=== PATIENT | male | born 1940 | race Two or more races ===

== ENCOUNTER 2017-07-26 20:40 | Emergency (ER) | payer OTHER ==
[~2017-07-26] VITALS: Ht 167.6 cm; Wt 63.5 kg
--- NOTE | 2017-07-26 20:49 | NUR ---
CAMERON MUIR AT BEDSIDE TO YAZMIN KHALIL.
--- NOTE | 2017-07-26 20:59 | NUR ---
BLOOD DRAWN BY PERINATAL INSTRUCTOR.
[2017-07-26 21:04] LABS: BASOPHILS % (AUTO) 0.7 % (0.0-2.0); EOSINOPHILS # (AUTO) 0.1 /CMM (0.0-0.7); EOSINOPHILS % (AUTO) 2.3 % (0.0-6.0); HEMATOCRIT 27 % (39-51); HEMOGLOBIN 8.9 g/dL (13.5-17.5); LYMPHOCYTES # (AUTO) 1.2 /CMM (0.8-4.8); LYMPHOCYTES % (AUTO) 21.8 % (20.0-44.0); MEAN CORPUSCULAR HEMOGLOBIN 31 PG (26.0-33.0); MEAN CORPUSCULAR HGB CONC 33 g/dl (31.0-36.0); MEAN CORPUSCULAR VOLUME 92 fL (80-96); MONOCYTES # (AUTO) 0.4 /CMM (0.1-1.30); MONOCYTES % (AUTO) 7.3 % (2.0-12.0); NEUTROPHILS % (AUTO) 67.9 % (43.0-81.0); PLATELET COUNT (AUTO) 117 /CMM (150-450); RDW COEFFICIENT OF VARIATION 17.3 (11.5-15.0); RED BLOOD CELL COUNT(AUTO) 2.93 MIL/uL (4.5-6.0); WHITE BLOOD COUNT (AUTO) 5.7 K/uL (4.3-11.0)
[2017-07-26 21:34] LABS: CALCIUM, SERUM 8.5 mg/dL (8.5-10.1); CARBON DIOXIDE 25 mmol/L (21-32); CHLORIDE 110 mmol/L (98-107); CREATININE 3.9 mg/dL (0.6-1.3); GLUCOSE 111 mg/dL (74-106); SODIUM SERUM 143 mmol/L (136-145); UREA NITROGEN, BLOOD 58 mg/dL (7-18)
[2017-07-26 21:39] LABS: POTASSIUM 6.2 mmol/L (3.5-5.1)
[2017-07-26 21:41] LABS: BILIRUBIN,DIRECT 0.1 mg/dL (0.0-0.2); BILIRUBIN,TOTAL 0.3 mg/dL (0.2-1.0)
[2017-07-26 21:42] LABS: ALANINE AMINOTRANSFERASE 44 U/L (12-78); ALBUMIN 2.5 g/dL (3.4-5.0); ALKALINE PHOSPHATASE 314 U/L (46-116); ASPARTATE AMINOTRANSFERASE 42 U/L (15-37); LIPASE 568 U/L (73-393); TOTAL PROTEIN, SERUM 6.6 g/dL (6.4-8.2)
--- NOTE | 2017-07-26 21:49 | NUR ---
RT CALLED FOR [facility] [place].
--- NOTE | 2017-07-26 21:51 | NUR ---
CALLED [facility], AWAITING CALL BACK FROM [place]
[2017-07-26] MEDS ORDERED: SODIUM POLYSTYRENE SULFONATE 15 G/60 ML BOTTLE ONE (21:57)
[2017-07-26] MEDS ORDERED: CALCIUM CHLORIDE 1,000 MG/10 ML DISP.SYRIN ONE (21:58)
[2017-07-26] MEDS ORDERED: SODIUM BICARBONATE SYR 50 MEQ/50 ML DISP.SYRIN ONE (21:58)
[2017-07-26] MEDS ORDERED: CALCIUM CHLORIDE 1,000 MG/10 ML DISP.SYRIN IV ONE (22:00)
[2017-07-26] MEDS ORDERED: SODIUM BICARBONATE SYR 50 MEQ/50 ML DISP.SYRIN IV ONE (22:00)
[2017-07-26] MEDS ORDERED: SODIUM POLYSTYRENE SULFONATE 15 G/60 ML BOTTLE PO ONE (22:00)
[2017-07-26] MEDS ORDERED: ALBUTEROL FS 2.5 MG/3 ML VIAL.NEB NEB ONE (22:00)
[2017-07-26] MEDS ORDERED: ALBUTEROL FS 2.5 MG/3 ML VIAL.NEB ONE (22:04)
[2017-07-26] MEDS ORDERED: LIDOCAINE 2% JEL UROJET 10 ML MM ONE (22:32)
--- NOTE | 2017-07-26 23:08 | NUR ---
RECEIVED CALL BACK FROM [facility] WITH TRANSFER INFO. PATIENT IS GOING TO [facility]. RECEIVING DR. WILL BE DR. MAC. [facility] ETA 0115. PHONE NUMBER FOR REPORT IS [phone]
--- NOTE | 2017-07-26 23:49 | NUR ---
pt resting quietly, no acute distress noted, resp even and unlabored. call light wihtin reach. pt family meber at bedside.
[2017-07-27] MEDS ORDERED: DEXTROSE 50%-WATER 50 ML DISP.SYRIN IVP ONE
[2017-07-27] MEDS ORDERED: DEXTROSE 50%-WATER 50 ML DISP.SYRIN ONE (00:08)
--- NOTE | 2017-07-27 00:15 | NUR ---
DAUGHTER OF PATIENT REQUESTED A CALL WHENEVER THE PATIENT GETS TRANSFERED TO [place]. HER NAME IS KEILA, PHONE NUMBER: [phone]
[2017-07-27 01:24] VITALS: BP 130/81
--- NOTE | 2017-07-27 01:27 | NUR ---
[facility] REPORT GIVEN SENIOR CONTROLS TECHNICIAN
--- NOTE | 2017-07-27 01:32 | NUR ---
REPORT GIVEN TO [facility] CORTEZ.
--- NOTE | 2017-07-27 01:35 | NUR ---
[facility] ROOM 103, NURSE IS BROOKS
== END 2017-07-27 01:34 | disposition short-term general hospital (02) ==
LOC: ER 20:41
DX: E11.649 Type 2 diabetes mellitus with hypoglycemia without coma (principal); E11.22 Type 2 diabetes mellitus with diabetic chronic kidney disease; D64.9 Anemia, unspecified; E87.5 Hyperkalemia; I12.0 Hypertensive chronic kidney disease with stage 5 chronic kidney disease or end stage renal disease; N18.6 End stage renal disease; Z66 Do not resuscitate; Z88.5 Allergy status to narcotic agent; Z88.6 Allergy status to analgesic agent
CPT/HCPCS: 36415; 71045; 80048; 80076; 82962 ×3; 83690; 84484; 85025; 93005; 94640; 96365; 96375; 99291; A4216; A4606; J3490 ×3; Z7610